=== PATIENT | female | born 1940 | race Caucasian/White ===

== ENCOUNTER 2017-05-14 16:00 | Emergency (ER) | payer MEDICARE, OTHER ==
[~2017-05-14] VITALS: Ht 157.5 cm; Wt 63.6 kg
[2017-05-14] MEDS ORDERED: FENTANYL PF 100 MCG/2ML ONE ×2 (16:36→17:25)
[2017-05-14] MEDS ORDERED: PROPOFOL 10 MG/ML, 20ML IVPush ONE (17:00)
[2017-05-14] MEDS ORDERED: PROPOFOL 10 MG/ML, 20ML ONE (17:07)
[2017-05-14] MEDS ORDERED: FENTANYL PF 100 MCG/2ML IVPush ONE (18:00)
[2017-05-14] MEDS ORDERED: FENTANYL PF 100 MCG/2ML IV ONE ×2 (18:30)
[2017-05-14] MEDS ORDERED: KETOROLAC 30 MG/1 ML ONE (18:48)
[2017-05-14 18:50] VITALS: BP 145/66
== END 2017-05-14 18:52 | disposition home or self-care (01) ==
LOC: ED 18:46
DX: S73.014A Posterior dislocation of right hip, initial encounter (principal); M32.9 Systemic lupus erythematosus, unspecified; X58.XXXA Exposure to other specified factors, initial encounter; Y93.89 Activity, other specified; Y99.8 Other external cause status; Y92.89 Other specified places as the place of occurrence of the external cause
CPT/HCPCS: 27250; 72170; 73502; 99152; 99285; J2704; J3010